=== PATIENT | female | born 1945 | race Two or more races ===

== ENCOUNTER 2024-04-19 20:58 | Emergency (ER) | payer OTHER ==
[2024-04-19 21:06] VITALS: RESP 20; TEMP 98.5; BMI 25.6
[2024-04-20 10:50] VITALS: BP 116/71; PULSE 82
== END 2024-04-20 10:45 ==
LOC: JER 20:58
DX: R05.9 Cough, unspecified (principal); R09.81 Nasal congestion; U07.1 COVID-19
CPT/HCPCS: 0241U-QW; 99283-25